=== PATIENT | female | born 1950 | race Caucasian/White ===

== ENCOUNTER 2024-08-14 18:28 | Inpatient (IN) | payer MEDICARE, OTHER ==
[~2024-08-14] VITALS: Ht 165.1 cm; Wt 81.6 kg
[~2024-08-14 18:28] MED LIST: ALPR0.255 PO; HYDR453.3 TP
[2024-08-14 18:59] LABS: BASOPHILS # (AUTO) 0.1 K/uL (0.0-0.2); BASOPHILS % (AUTO) 1.4 % (0.0-2.0); EOSINOPHILS # (AUTO) 0.2 K/uL (0.0-0.7); EOSINOPHILS % (AUTO) 2.2 % (0.0-6.0); HEMATOCRIT 35 % (33-45); HEMOGLOBIN 11.5 g/dL (11.5-14.8); LYMPHOCYTES # (AUTO) 1.8 K/uL (0.8-4.8); LYMPHOCYTES % (AUTO) 23.2 % (20.0-44.0); MEAN CORPUSCULAR HEMOGLOBIN 26 PG (26.0-33.0); MEAN CORPUSCULAR HGB CONC 33 g/dl (31.0-36.0); MEAN CORPUSCULAR VOLUME 80 fL (82-100); MONOCYTES # (AUTO) 0.6 K/uL (0.1-1.30); MONOCYTES % (AUTO) 7.9 % (2.0-12.0); NEUTROPHILS # (AUTO) 5.1 K/uL (1.8-8.9); NEUTROPHILS % (AUTO) 65.3 % (43.0-81.0); PLATELET COUNT (AUTO) 339 K/uL (150-450); RED BLOOD CELL COUNT(AUTO) 4.43 MIL/uL (4.0-5.2); RED CELL DISTRIBUTION WIDTH 15.5 % (11.5-15.0); WHITE BLOOD COUNT (AUTO) 7.8 K/uL (4.3-11.0)
[2024-08-14 19:18] LABS: CALCIUM, SERUM 8.9 mg/dL (8.5-10.1); CARBON DIOXIDE 27 mmol/L (21-32); CHLORIDE 105 mmol/L (98-107); CREATININE 0.8 mg/dL (0.6-1.3); GLUCOSE 155 mg/dL (74-106); POTASSIUM 3.9 mmol/L (3.5-5.1); SODIUM SERUM 140 mmol/L (136-145); UREA NITROGEN, BLOOD 28 mg/dL (7-18)
[2024-08-14 19:24] LABS: ALANINE AMINOTRANSFERASE 9 U/L (12-78); ALBUMIN 3.4 g/dL (3.4-5.0); ALCOHOL, BLOOD < 3 mg/dL (0-10); ALKALINE PHOSPHATASE 118 U/L (46-116); ASPARTATE AMINOTRANSFERASE 16 U/L (15-37); BILIRUBIN,DIRECT 0.1 mg/dL (0.0-0.2); BILIRUBIN,TOTAL 0.6 mg/dL (0.2-1.0); TOTAL PROTEIN, SERUM 7.3 g/dL (6.4-8.2)
[2024-08-14 19:31] LABS: ACETAMINOPHEN <10 ug/ml (10-30); SALICYLATE 1.8 mg/dL (2.8-20.0)
[2024-08-14] MEDS ORDERED: IBUP-1955 PO (19:38)
[2024-08-14] MEDS ORDERED: POLY17PO4 PO (19:38)
[2024-08-14] MEDS ORDERED: CYAN100020 PO (19:38)
[2024-08-14] MEDS ORDERED: IBUP-1953 PO (19:38)
[2024-08-14] MEDS ORDERED: DEXT30DR6 EACHEYE (19:38)
[2024-08-14] MEDS ORDERED: BROM3DRO EACHEYE (19:38)
[2024-08-14] MEDS ORDERED: BISA10SU11 RC (19:38)
[2024-08-14] MEDS ORDERED: IBUP-2715 PO (19:38)
[2024-08-14] MEDS ORDERED: METH5TAB70 PO (19:38)
[2024-08-14] MEDS ORDERED: NA P133E RC (19:38)
[2024-08-14] MEDS ORDERED: ONDA-97 PO (19:38)
[2024-08-14] MEDS ORDERED: IRBE150T28 PO (19:38)
[2024-08-14] MEDS ORDERED: CARB1CAP3 PO ×2 (19:38)
[2024-08-14] MEDS ORDERED: ASPI-1420 PO (19:38)
[2024-08-14] MEDS ORDERED: LIFI1DRO4 EACHEYE (19:38)
[2024-08-14] MEDS ORDERED: LATA2.5D2 EACHEYE (19:38)
[2024-08-14] MEDS ORDERED: HYDR-4077 PO (19:38)
[2024-08-14] MEDS ORDERED: MAGN400O6 PO (19:38)
[2024-08-14] MEDS ORDERED: LINA145C PO (19:38)
[2024-08-14 19:56] LABS: APPEARANCE,URINE CLEAR (CLEAR); BILIRUBIN,URINE NEGATIVE (NEGATIVE); BLOOD, URINE NEGATIVE Ery/uL (NEGATIVE); COLOR,URINE YELLOW (YELLOW); KETONES,URINE TRACE mg/dL (NEGATIVE); LEUKOCYTE ESTERASE ,URINE NEGATIVE (NEGATIVE); NITRITE, URINE NEGATIVE (NEGATIVE); PROTEIN,URINE NEGATIVE (NEGATIVE); UGLUCOSE NEGATIVE (NEGATIVE); UROBILINOGEN,URINE 0.2 EU/dL (0.2)
[2024-08-14 20:15] LABS: AMPHETAMINE, URINE NEGATIVE (NEGATIVE); BARBITURATE, URINE NEGATIVE (NEGATIVE); BENZODIAZEPINE, URINE NEGATIVE (NEGATIVE); CANNABINOID, URINE NEGATIVE (NEGATIVE); COCCAINE, URINE NEGATIVE (NEGATIVE); OPIATE, URINE NEGATIVE (NEGATIVE); PHENCYCLIDINE SCREEN,URINE NEGATIVE (NEGATIVE)
[2024-08-14 20:48] LABS: SQUAMOUS EPITHELIAL CELL,UR Few /HPF (None Seen)
[2024-08-14 20:49] LABS: ADD URINE CULTURE NO; BACTERIA,URINE Rare /HPF (None Seen); RBC,URINE 0-2 /HPF (0-2); WBC,URINE 0-2 /HPF (0-3)
[2024-08-15] MEDS ORDERED: QUETIAPINE FUMARATE 25 MG TABLET PO PRN (00:30)
[2024-08-15] MEDS ORDERED: ZOLPIDEM TARTRATE 5 MG TABLET PO PRN (00:30)
[2024-08-15] MEDS ORDERED: MAGNESIUM HYDROXIDE 30 ML UDC PO PRN ×2 (00:30→11:30)
[2024-08-15] MEDS ORDERED: MAG HYDROX/AL HYDROX/SIMETH 30 ML UDC PO PRN (00:30)
[2024-08-15] MEDS: BLOOD SUGAR DIAGNOSTIC 1 EACH STRIP IN ONE (00:34)
[2024-08-15 01:25] VITALS: BP 150/65; TEMP 98.6; O2SAT 100
[2024-08-15 06:11] VITALS: BP 152/65; TEMP 98.5; O2SAT 98
[2024-08-15 08:00] VITALS: BP 150/65; TEMP 98.4; O2SAT 96
[2024-08-15] MEDS ORDERED: BISACODYL SUPP (10 MG) 10 MG/SUPP.RECT SUPP.RECT RC PRN (11:30)
[2024-08-15] MEDS: ASPIRIN EC 81 MG TABLET.DR PO SCH (11:42)
[2024-08-15] MEDS: CARBIDOPA/LEVODOPA 25/100 MG 1 UDTAB PO SCH (12:24)
[2024-08-15] MEDS: IBUPROFEN 400 MG TABLET PO PRN (12:27)
[2024-08-15 16:00] VITALS: BP 136/75; TEMP 98.1; O2SAT 100
[2024-08-15] MEDS: OXCARBAZEPINE 150 MG TABLET PO SCH (16:06)
[2024-08-15 20:00] VITALS: BP 146/68; TEMP 98.3; O2SAT 100
[2024-08-15] MEDS: QUETIAPINE FUMARATE 25 MG TABLET PO SCH (20:51)
[2024-08-15] MEDS: LATANOPROST EYE DROP 0.005% 2.5 ML BOTTLE EACHEYE SCH (21:24)
[2024-08-16 08:00] VITALS: BP 123/59; TEMP 97.8; O2SAT 97
[2024-08-16] MEDS: METHIMAZOLE (5MG) 5 MG TABLET PO SCH (09:00)
[2024-08-16] MEDS: LOSARTAN POTASSIUM 50 MG TABLET PO SCH (09:00)
[2024-08-16] MEDS: CYANOCOBALAMIN 500 MCG TABLET PO SCH (09:00)
[2024-08-16] MEDS: POLYETHYLENE GLYCOL 3350 17 GM POWD.PACK PO SCH (09:00)
[2024-08-16] MEDS: HYDROCORTISONE 2.5% CREAM 28.4 GM TUBE TP SCH (09:00)
[2024-08-16] MEDS: NA PHOS,M-B/NA PHOS,DI-BA 1 EA ENEMA RC SCH (09:00)
[2024-08-16] MEDS: OXCARBAZEPINE 150 MG TABLET PO SCH (13:26)
[2024-08-16 16:00] VITALS: BP 151/67; TEMP 98; O2SAT 98
[2024-08-16 20:00] VITALS: BP 106/55; TEMP 98.4; O2SAT 97
[2024-08-17 08:00] VITALS: BP 100/62; TEMP 97.7; O2SAT 96
[2024-08-17 16:00] VITALS: BP_SYST 127; BP_SYST 133; BP_DIAS 76; BP_DIAS 80; TEMP 97.8; O2SAT 100; O2SAT 98
[2024-08-17 20:18] VITALS: BP 137/61; TEMP 97.9; O2SAT 98
[2024-08-18 08:00] VITALS: BP 147/71; TEMP 98.6; O2SAT 97
[2024-08-18] MEDS: IBUPROFEN 200 MG TABLET PO PRN (12:35)
[2024-08-18 15:41] VITALS: BP 120/56; TEMP 98.8; O2SAT 100
[2024-08-18 20:21] VITALS: BP 140/64; TEMP 98.7; O2SAT 98
[2024-08-19 08:00] VITALS: BP 139/59; TEMP 98.7; O2SAT 99
[2024-08-19 16:00] VITALS: BP 123/55; TEMP 98.8; O2SAT 98
[2024-08-19 21:02] VITALS: BP 110/56; TEMP 98.4; O2SAT 98
[2024-08-20 08:00] VITALS: BP 108/61; TEMP 98.6; O2SAT 98
[2024-08-20 16:00] VITALS: BP 139/70; TEMP 98.1; O2SAT 97
[2024-08-21 00:29] VITALS: BP 136/72; TEMP 98; O2SAT 99
[2024-08-21 08:00] VITALS: BP 143/63; TEMP 98.7; O2SAT 98
[2024-08-21 20:00] VITALS: BP 146/67; TEMP 97.9; O2SAT 98
[2024-08-22 08:00] VITALS: BP 136/67; TEMP 97.8; O2SAT 96
[2024-08-22 08:27] VITALS: BP 136/67
== END 2024-08-22 13:20 | DRG 885 ==
LOC: ER 18:38 → GPS 22:28
PROVIDERS: ADMIT Psychiatry & Neurology Psychiatry
DX: F39 Unspecified mood [affective] disorder (principal); F06.71 Mild neurocognitive disorder due to known physiological condition with behavioral disturbance; F29 Unspecified psychosis not due to a substance or known physiological condition; G20.A1 Parkinson's disease without dyskinesia, without mention of fluctuations; I10 Essential (primary) hypertension; Z86.73 Personal history of transient ischemic attack (TIA), and cerebral infarction without residual deficits; E66.9 Obesity, unspecified; F41.9 Anxiety disorder, unspecified; Z87.891 Personal history of nicotine dependence; Z20.822 Contact with and (suspected) exposure to COVID-19; Z68.30 Body mass index [BMI] 30.0-30.9, adult; Z91.199 Patient's noncompliance with other medical treatment and regimen due to unspecified reason
CPT/HCPCS: 36415; 80048-TC; 80076-TC; 81001; 82962-TC; 85025-TC; 87081-TC; 97110-TC; 97116-TC; 97530-TC; G0480